=== PATIENT | female | born 1945 | race Two or more races ===

== ENCOUNTER 2017-11-18 07:28 | Day surgery (SDC) | payer MEDICARE, MEDICAID ==
[~2017-11-18] VITALS: Ht 168.9 cm; Wt 56.0 kg
[~2017-11-18 07:28] MED LIST: ASPI-621 PO; BUPIVACAINE/PF 0.25% ONE; CALC1CAP8 PO; CHOL10003 PO; EPINEPHRINE 1 MG/ML, 1ML ONE; FAMO40TA61 PO; FOLIC ACID PO; METH500C3 PO; NEOMY/POLYMYXIN B GU IRR. 1 ML IRRIG ONE; PAPA1TAB8 PO
[2017-11-18] MEDS ORDERED: SUGAMMADEX 200 MG/2 ML IVPush ONE (07:32)
[2017-11-18 08:18] VITALS: BP 128/67
[2017-11-18] MEDS ORDERED: LACTATED RINGERS 1,000 ML IV SCH (08:21)
[2017-11-18] MEDS ORDERED: GLYCOPYRROLATE 0.2MG/1ML, 5ML ONE (09:30)
[2017-11-18] MEDS ORDERED: CEFAZOLIN 1,000 MG ONE (09:30)
[2017-11-18] MEDS ORDERED: ROCURONIUM 10 MG/ML,10ML ONE (09:30)
[2017-11-18] MEDS ORDERED: DEXAMETHASONE 4 MG/ML, 1ML ONE (09:30)
[2017-11-18] MEDS ORDERED: NEOSTIGMINE 1 MG/ML, 10ML ONE (09:30)
[2017-11-18] MEDS ORDERED: SUCCINYLCHOLINE 20 MG/ML, 10ML ONE (09:30)
[2017-11-18] MEDS ORDERED: PROPOFOL 10 MG/ML, 20ML ONE (09:30)
[2017-11-18] MEDS ORDERED: ONDANSETRON 2MG/ML, 2ML ONE (09:30)
[2017-11-18] MEDS ORDERED: MIDAZOLAM 1 MG/ML, 2ML ONE (09:31)
[2017-11-18] MEDS ORDERED: FENTANYL PF 100 MCG/2ML ONE ×2 (09:31→11:14)
[2017-11-18] MEDS ORDERED: FUROSEMIDE 20 MG/2 ML ONE (10:25)
[2017-11-18] MEDS ORDERED: FLUORESCEIN SODIUM 500 MG/5 ML ONE (10:38)
[2017-11-18] MEDS ORDERED: OXYcodone 5 MG/5 ML ORAL.SOL UDC ONE (11:14)
[2017-11-18] MEDS ORDERED: ACETAMINOPHEN 650 MG/20.3 ML UDC ONE (11:14)
[2017-11-18] MEDS ORDERED: morphine SULFATE 10 MG/ML, 1ML IV PRN (11:30)
[2017-11-18] MEDS ORDERED: KETOROLAC 30 MG/1 ML IV PRN ×2 (11:30)
[2017-11-18] MEDS ORDERED: OXYcodone 5 MG/5 ML ORAL.SOL UDC PO PRN (11:30)
[2017-11-18] MEDS ORDERED: HYDROcodone/APAP 7.5-325MG/15ML UDC PO PRN (11:30)
[2017-11-18] MEDS ORDERED: ACETAMINOPHEN 325 MG TABLET PO PRN (11:30)
[2017-11-18] MEDS ORDERED: MEPERIDINE/PF 25MG/0.5ML IVPush PRN (11:30)
[2017-11-18] MEDS ORDERED: HYDROmorphone 1 MG/ML, 1ML IV PRN (11:30)
[2017-11-18] MEDS: FENTANYL PF 100 MCG/2ML IV PRN ×2 (11:32→11:50)
== END 2017-11-18 15:15 ==
LOC: OUT 07:28
PROVIDERS: ATTEND Obstetrics & Gynecology Female Pelvic Medicine and Reconstructive Surgery
DX: N81.4 Uterovaginal prolapse, unspecified (principal); N39.46 Mixed incontinence; Z98.890 Other specified postprocedural states
CPT/HCPCS: 57265; 57282; 58552; 88307; 93005; C1771; J0171; J0690; J1100; J1940; J2250; J2405; J2704; J3010; J3490; J7120; J2710; J0330